=== PATIENT | female | born 1990 | race Caucasian/White ===

== ENCOUNTER 2017-01-03 13:28 | Emergency (ER) | payer OTHER ==
[~2017-01-03] VITALS: Ht 165.1 cm; Wt 111.1 kg
[~2017-01-03 13:28] MED LIST: IBUP-1060 PO; PREN1TAB80 PO
[2017-01-03 13:58] VITALS: BP 140/85
--- NOTE | 2017-01-03 14:10 | RAD ---
Indication pain for 2 weeks. No history of injury. AP oblique and lateral views of the left wrist were obtained. No bony abnormality is seen
--- NOTE | 2017-01-03 14:22 | PHYS DOC ---
Past Medical History Past Medical History: No Pertinent History Past Surgical History: No Surgical History Alcohol Use: Occasionally Drug Use: None Adult General Chief Complaint Chief Complaint: WRIST PAIN [facility] HPI Patient is a 26 year old female presents to the emergency department with a history of left hand/wrist pain. Patient denies any injury or trauma to the wrist. Patient states she has taken Tylenol for the pain. She states the pain comes and goes. Unsure of any one thing that causes the pain. Patient does state that she heard a pop in her hands today. Review of Systems Review of Systems Constitutional: Denies fever or chills [] Eyes: Denies change in visual acuity, redness, or eye pain [] HENT: Denies nasal congestion or sore throat [] Respiratory: Denies cough or shortness of breath [] Cardiovascular: No additional information not addressed in HPI [] GI: Denies abdominal pain, nausea, vomiting, bloody stools or diarrhea [] : Denies dysuria or hematuria [] Musculoskeletal: Denies back pain. C/o left wrist pain Integument: Denies rash or skin lesions [] Neurologic: Denies headache, focal weakness or sensory changes [] Endocrine: Denies polyuria or polydipsia [] Allergies Allergies Allergies Coded Allergies Type Severity Reaction Last Updated Verified No Known Drug Allergies 03/19/16 No Physical Exam Physical Exam Constitutional: Well developed, well nourished, no acute distress, non-toxic appearance. [] HENT: Normocephalic, atraumatic, bilateral external ears normal, oropharynx moist, no oral exudates, nose normal. [] Eyes: PERRLA, EOMI, conjunctiva normal, no discharge. [] Neck: Normal range of motion, no tenderness, supple, no stridor. [] Cardiovascular:Heart rate regular rhythm Lungs & Thorax: no respiratory distress noted Skin: Warm, dry, no erythema, no rash. [] Back: No tenderness Extremities: Left wrist/ hand tenderness, no cyanosis, no clubbing, ROM intact, no edema. No swelling noted, no bruising or discoloration noted. Patient has full range of motion of the wrist fingers and arm. No tenderness noted over the scaphoid area. Neurologic: Alert and oriented X 3, normal motor function, normal sensory function, no focal deficits noted. [] Psychologic: Affect normal, judgement normal, mood normal. [] Current Patient Data Vital Signs Vital Signs Date Time Temp Pulse Resp B/P (MAP) Pulse Ox O2 Delivery O2 Flow Rate FiO2 01/03/17 13:58 98.0 95 18 97 Room Air 98.0 EKG EKG [] Radiology/Procedures Radiology/Procedures [][facility] [address] [place] [address] IMAGING REPORT Signed PATIENT: HORACE SAENZ ACCOUNT: [id number] : 1990 LOCATION: ER AGE: 26 SEX: F EXAM STATUS: REG ER ORD. PHYSICIAN: UGO GRADY APRN REASON: pain to the left wrist PROCEDURE: WRIST 3V LEFT Indication pain for 2 weeks. No history of injury. AP oblique and lateral views of the left wrist were obtained. No bony abnormality is seen DICTATED and SIGNED BY: LIAT ALMENDAREZ MD DATE: 01/03/17 1406 CC: UGO GRADY APRN; NON,STAFF; JOSH HALEY ~ Course & Med Decision Making Course & Med Decision Making Pertinent Labs and Imaging studies reviewed. (See chart for details) X-rays were negative for any bony abnormalities. Patient will be placed in a wrist splint, Velcro. Patient was instructed to take Tylenol or ibuprofen for pain and discomfort. Provided with orthopedic to follow-up with if she continues to have pain and discomfort. Patient agrees with discharge instructions treatment regimens and follow-up recommendations. [] Dragon Disclaimer Dragon Disclaimer This electronic medical record was generated, in whole or in part, using a voice recognition dictation system. Departure Departure Impression: Primary Impression: Left wrist pain Disposition: 01 HOME, SELF-CARE Condition: STABLE Referrals: JOSH HALEY (PCP) ABI RYAN MD Patient Instructions: Wrist Pain, [id number] Additional Instructions: Activity as tolerated. Wear the splint for the next 5-7 days. Tylenol or ibuprofen for pain and discomfort. Follow-up with orthopedic in the next week Return back to emergency prior signs symptoms of become worse. UGO GRADY APRN Jan 03, 2017 14:22
== END 2017-01-03 14:28 | disposition home or self-care (01) ==
LOC: ER 13:28
DX: M25.532 Pain in left wrist (principal)
CPT/HCPCS: 29125; 73110; 99284-25

== ENCOUNTER → 2018-02-03 | Outpatient (CLI) | payer OTHER ==
[2018-02-08 15:26] LABS: ALTERNARIA <0.10 kU/L (Class 0); ASH <0.10 kU/L (Class 0); ASPERGILLUS <0.10 kU/L (Class 0); BERMUDA <0.10 kU/L (Class 0); CAT DANDER <0.10 kU/L (Class 0); CLADOSPORIUM <0.10 kU/L (Class 0); CLAM <0.10 kU/L (Class 0); COCKROACH <0.10 kU/L (Class 0); CODFISH <0.10 kU/L (Class 0); CORN <0.10 kU/L (Class 0); COTTONWOOD <0.10 kU/L (Class 0); D PTERONYSSINUS <0.10 kU/L (Class 0); DOG DANDER <0.10 kU/L (Class 0); DUST MITE <0.10 kU/L (Class 0); EGG WHITE <0.10 kU/L (Class 0); ELM <0.10 kU/L (Class 0); MAPLE <0.10 kU/L (Class 0); MILK <0.10 kU/L (Class 0); MOUNTAIN CEDAR <0.10 kU/L (Class 0); MULBERRY <0.10 kU/L (Class 0); NETTLE <0.10 kU/L (Class 0); OAK TREE <0.10 kU/L (Class 0); PEANUT <0.10 kU/L (Class 0); PENICILLIUM <0.10 kU/L (Class 0); RAST IGE 13 IU/mL (0-100); RUSSIAN THISTLE <0.10 kU/L (Class 0); SCALLOP <0.10 kU/L (Class 0); SESAME SEED <0.10 kU/L (Class 0); SHEEP SORREL <0.10 kU/L (Class 0); SHORT RAGWEED <0.10 kU/L (Class 0); SHRIMP <0.10 kU/L (Class 0); SOYBEAN <0.10 kU/L (Class 0); TIMOTHY GRASS <0.10 kU/L (Class 0); WALNUT <0.10 kU/L (Class 0); WHEAT <0.10 kU/L (Class 0)
== END | disposition home or self-care (01) ==
LOC: LAB 15:22
DX: J30.89 Other allergic rhinitis (principal)
CPT/HCPCS: 36415; 82784; 86001